=== PATIENT | male | born 1990 | race Caucasian/White ===

== ENCOUNTER 2021-05-28 10:03 | Day surgery (SDC) | payer OTHER ==
[~2021-05-28] VITALS: Ht 188 cm; Wt 78.4 kg
[~2021-05-28 10:03] MED LIST: LIDOCAINE 1% MDV 20ML VIAL SQ PRN; LR 1,000 ML IV ONE
[2021-05-28] MEDS ORDERED: LIDOCAINE 2% 100MG/5ML SDV (FOR ANES.) As Ordered ONE (10:11)
[2021-05-28] MEDS ORDERED: ROCURONIUM BROMIDE 50 MG/5 ML VIAL As Ordered ONE (10:11)
[2021-05-28] MEDS ORDERED: propofoL 200 MG/20 ML VIAL As Ordered ONE (10:11)
[2021-05-28] MEDS ORDERED: fentaNYL 250 MCG/5 ML INJECTION As Ordered ONE (10:12)
[2021-05-28] MEDS ORDERED: MIDAZOLAM INJ 2MG/2ML VIAL (J2250 PER 1MG) As Ordered ONE (10:12)
[2021-05-28] MEDS ORDERED: BUPIVACAINE HCL 0.5% 30 ML VIAL As Ordered ONE (10:31)
[2021-05-28] MEDS ORDERED: OXYMETAZOLINE 0.05% NASAL SPRAY (AFRIN) As Ordered ONE (11:13)
[2021-05-28] MEDS ORDERED: ONDANSETRON 4MG/2ML VIAL As Ordered ONE (11:36)
[2021-05-28] MEDS ORDERED: dexameTHASONE 4 MG/ML 1ML VIAL (J1100 PER 1MG) As Ordered ONE (11:36)
[2021-05-28] MEDS ORDERED: ePHEDrine SULFATE 25 MG/5 ML(5MG/ML) SYRINGE As Ordered ONE (11:51)
[2021-05-28] MEDS ORDERED: fentaNYL 100 MCG/2 ML INJECTION As Ordered ONE (12:33)
[2021-05-28] MEDS: fentaNYL 100 MCG/2 ML INJECTION IV PRN ×3 (12:35→13:03)
[2021-05-28] MEDS ORDERED: LR 1,000 ML IV SCH ×2 (12:45→12:50)
[2021-05-28] MEDS ORDERED: oxyCODONE 5MG TAB PO PRN (12:45)
[2021-05-28] MEDS ORDERED: ONDANSETRON 4MG/2ML VIAL IV PRN ×3 (12:45→12:50)
[2021-05-28] MEDS ORDERED: HYDROcodone/APAP LIQUID 7.5-325MG 15ML UDC (LORTAB ELIXIR) PO PRN (13:05)
[2021-05-28 13:50] VITALS: BP 128/70
== END 2021-05-28 13:53 | disposition home or self-care (01) ==
LOC: M SDC 10:03
PROVIDERS: ATTEND Otolaryngology
DX: J35.03 Chronic tonsillitis and adenoiditis (principal); Z88.6 Allergy status to analgesic agent; F17.220 Nicotine dependence, chewing tobacco, uncomplicated
CPT/HCPCS: 42821; 88302; J1100; J2250; J2405; J3010

== ENCOUNTER 2021-11-15 16:44 | Emergency (ER) | payer OTHER ==
[~2021-11-15] VITALS: Ht 188 cm; Wt 80.8 kg
[2021-11-15 18:48] VITALS: BP 124/71
== END 2021-11-15 19:01 | disposition home or self-care (01) ==
LOC: M ED 16:44
DX: S63.601A Unspecified sprain of right thumb, initial encounter (principal); X58.XXXA Exposure to other specified factors, initial encounter; Y92.89 Other specified places as the place of occurrence of the external cause; Y93.75 Activity, martial arts

== ENCOUNTER 2022-03-31 12:47 | Emergency (ER) | payer OTHER ==
[~2022-03-31] VITALS: Ht 188 cm; Wt 83.9 kg
[2022-03-31] MEDS ORDERED: HYDR-4571 (13:10)
[2022-03-31] MEDS ORDERED: PERCOCET 5MG/325MG TAB PO ONE (16:45)
[2022-03-31] MEDS ORDERED: IBUP80TA PO (19:11)
[2022-03-31] MEDS ORDERED: PERC5TAB12 PO (19:11)
[2022-03-31 19:28] VITALS: BP 138/67
[2022-03-31] MEDS ORDERED: IBUPROFEN 800 MG TAB PO ONE (19:30)
[2022-03-31] MEDS ORDERED: NORCO 5/325MG TABLET (HOME DOSE PACK) PO ONE (19:45)
== END 2022-03-31 19:55 | disposition home or self-care (01) ==
LOC: M ED 12:47
DX: S92.102A Unspecified fracture of left talus, initial encounter for closed fracture (principal); S92.152A Displaced avulsion fracture (chip fracture) of left talus, initial encounter for closed fracture; F17.200 Nicotine dependence, unspecified, uncomplicated; Y93.44 Activity, trampolining; Z79.899 Other long term (current) drug therapy

== ENCOUNTER → 2022-04-03 | Outpatient (CLI) | payer OTHER ==
[~2022-04-03] MED LIST changes: +HYDR-4571; +IBUP80TA PO; -LIDOCAINE 1% MDV 20ML VIAL SQ PRN; -LR 1,000 ML IV ONE; +PERC5TAB12 PO
== END ==
LOC: M SOG 16:21
PROVIDERS: ATTEND Orthopaedic Surgery Adult Reconstructive Orthopaedic Surgery
DX: S93.402A Sprain of unspecified ligament of left ankle, initial encounter (principal)

== ENCOUNTER → 2022-04-12 | Outpatient (CLI) | payer OTHER | LOC: M PLARAD 14:44 | PROVIDERS: ATTEND Orthopaedic Surgery Adult Reconstructive Orthopaedic Surgery | DX: S82.65XA Nondisplaced fracture of lateral malleolus of left fibula, initial encounter for closed fracture (principal); X58.XXXA Exposure to other specified factors, initial encounter; Y92.9 Unspecified place or not applicable ==